=== PATIENT | female | born 1970 | race Caucasian/White ===

== ENCOUNTER 2018-06-30 10:14 | Emergency (ER) | payer OTHER ==
[~2018-06-30] VITALS: Ht 160 cm; Wt 56.2 kg
[2018-06-30] MEDS ORDERED: HYDROCODONE/APAP 5MG-325MG TAB PO ONE (10:45)
== END 2018-06-30 12:11 | disposition home or self-care (01) ==
LOC: FSED 10:14
DX: G89.11 Acute pain due to trauma (principal); M25.551 Pain in right hip; M79.651 Pain in right thigh; M54.5 Low back pain; R26.2 Difficulty in walking, not elsewhere classified; S40.212A Abrasion of left shoulder, initial encounter; W17.89XA Other fall from one level to another, initial encounter; W13.3XXA Fall through floor, initial encounter; Y92.008 Other place in unspecified non-institutional (private) residence as the place of occurrence of the external cause
CPT/HCPCS: 72100; 99283

== ENCOUNTER → 2020-01-28 | Outpatient (CLI) | payer BC ==
--- NOTE | 2020-01-29 09:53 | Diagnostic Imaging Report ---
EXAM: Thyroid Ultrasound INDICATION: ^[id number] ^[id number] ^HYPERTHYROIDISM COMPARISON: None TECHNIQUE: Transverse and sagittal images were obtained of the thyroid gland. FINDINGS: Thyroid gland: Size: Right lobe: 5.1 x 1.5 x 1.7 cm, mildly enlarged in size Left lobe: 3.7 x 1.2 x 1.3 cm, Normal in size Isthmus: 0.3 cm, Normal in size Appearance: Heterogeneous echotexture without increased vascularity Masses/Nodules: Right lobe: 1.7 x 0.7 x 1.1 cm solid (2 pts) nodule in the interpolar region with smooth margin (0 pts), ndfmp-qwby-epig (0 pts), isoechoic (1 pt), and no calcifications (0 pts). TR3b. 1.2 x 0.5 x 0.8 cm solid (2 pts) nodule in the lower pole with smooth margin (0 pts), uosmj-jmjt-vbcw (0 pts), isoechoic (1 pt), and no calcifications (0 pts). TR3a. 0.7 x 0.6 x 0.3 cm solid (2 pts) nodule in the isthmus with smooth margin (0 pts), herxw-mhcp-ggdu (0 pts), hypoechoic (2 pts), and no calcifications (0 pts). TR3a. Left lobe: 1.1 x 0.6 x 0.5 cm cm solid (2 pts) nodule in the superior pole with smooth margin (0 pts), djkwx-atzd-hepb (0 pts), isoechoic (1 pt), and no calcifications (0 pts). TR3a. Parathyroid: No focal parathyroid masses. IMPRESSION: 1. Heterogeneous sonographic appearance of the thyroid gland suggestive of nonspecific thyroiditis. 2. Multiple nonspecific thyroid nodules as detailed above. One year ultrasound follow-up for the largest nodule in the right thyroid lobe is recommended per TI-RAD criteria. Signed by: Aung Mancia MD on 01/29/2020 9:50 AM
--- NOTE | 2020-01-29 18:37 | Diagnostic Imaging Report ---
Thyroid Scan with Multiple Uptakes Reason for exam: Thyrotoxicosis Radiopharmaceutical: I-123 [place] 0.27 mCi Report: After oral administration of I-123 [place], the 6-hour thyroid uptake of iodine is 25% (normal 4-14%) and the 24-hour uptake is 37% (normal 10-25%). Images of the thyroid was obtained in the anterior and anterior oblique projections. The right lobe is slightly longer than the left lobe. The thyroid appears normal in size to mildly enlarged. Relatively increased focal tracer activity is seen in the lower pole of the right thyroid lobe. Otherwise, distribution of tracer activity appears homogeneous distribution throughout both lobes and the isthmus. The thyroid is in a normal anatomic location. A pyramidal lobe is not seen. There is no aberrant functioning thyroid tissue seen in the area scanned. 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 Signed by: Dr. Jessica Olguin M.D. on 01/29/2020 6:35 PM
== END ==
LOC: US 09:12
PROVIDERS: ATTEND Internal Medicine
DX: E05.90 Thyrotoxicosis, unspecified without thyrotoxic crisis or storm (principal)
CPT/HCPCS: 76536; 78014; A9516